=== PATIENT | male | born 1950 | race Caucasian/White ===

== ENCOUNTER 2020-04-09 11:13 | Inpatient (IN) | payer OTHER ==
[~2020-04-09] VITALS: Ht 177.8 cm; Wt 70.3 kg
--- NOTE | 2020-04-09 11:30 | NUR ---
[facility] RA 89 From Home "Dx COVID 03/15 in [facility]- admit to [facility] COVID Pneumonia. On room air, 02 sat 82%, 95% on 5lpm via nc. Connected to the monitor and pulse ox, kept comfortable, will continue to monitor accordingly.
--- NOTE | 2020-04-09 11:34 | NUR ---
IV access initiated and blood drawned and sent to lab
[2020-04-09] MEDS ORDERED: FINA5TAB11 PO (11:37)
[2020-04-09] MEDS ORDERED: ACET-868 PO (11:37)
[2020-04-09] MEDS ORDERED: BENA10TA74 PO (11:37)
[2020-04-09] MEDS ORDERED: PROM118S PO (11:37)
[2020-04-09] MEDS ORDERED: AMLO-213 PO (11:37)
[2020-04-09] MEDS ORDERED: IPRA3AMP23 IH (11:37)
[2020-04-09 11:39] LABS: BASOPHILS # (AUTO) 0.1 /CMM (0.0-0.2); BASOPHILS % (AUTO) 1.1 % (0.0-2.0); EOSINOPHILS % (AUTO) 0.9 % (0.0-6.0); HEMATOCRIT 46 % (39-51); HEMOGLOBIN 15.6 g/dL (13.5-17.5); LYMPHOCYTES # (AUTO) 1.1 /CMM (0.8-4.8); MEAN CORPUSCULAR HGB CONC 34 g/dl (31.0-36.0); MEAN CORPUSCULAR VOLUME 89 fL (80-96); MONOCYTES # (AUTO) 0.8 /CMM (0.1-1.30); MONOCYTES % (AUTO) 6.8 % (2.0-12.0); NEUTROPHILS # (AUTO) 9.9 /CMM (1.8-8.9); NEUTROPHILS % (AUTO) 82.2 % (43.0-81.0); PLATELET COUNT (AUTO) 287 /CMM (150-450); RED BLOOD CELL COUNT(AUTO) 5.21 MIL/uL (4.5-6.0)
[2020-04-09 11:50] LABS: BILIRUBIN,URINE Negative (NEGATIVE); COLOR,URINE YELLOW (YELLOW); LEUKOCYTE ESTERASE ,URINE Negative (NEGATIVE); NITRITE, URINE Negative (NEGATIVE); PROTEIN,URINE Negative (NEGATIVE); UGLUCOSE Negative (NEGATIVE); UROBILINOGEN,URINE 0.2 EU/dL (0.2)
[2020-04-09 11:54] LABS: ALANINE AMINOTRANSFERASE 44 U/L (12-78); ALBUMIN 2.5 g/dL (3.4-5.0); ALKALINE PHOSPHATASE 104 U/L (46-116); ASPARTATE AMINOTRANSFERASE 30 U/L (15-37); BILIRUBIN,DIRECT 0.2 mg/dL (0.0-0.2); BILIRUBIN,TOTAL 0.8 mg/dL (0.2-1.0); CALCIUM, SERUM 8.8 mg/dL (8.5-10.1); CARBON DIOXIDE 26 mmol/L (21-32); CHLORIDE 100 mmol/L (98-107); CREATININE 0.9 mg/dL (0.6-1.3); GLUCOSE 129 mg/dL (74-106); POTASSIUM 3.9 mmol/L (3.5-5.1); SODIUM SERUM 132 mmol/L (136-145); TOTAL PROTEIN, SERUM 8.2 g/dL (6.4-8.2); UREA NITROGEN, BLOOD 7 mg/dL (7-18)
--- NOTE | 2020-04-09 11:56 | NUR ---
urine collected and sent to lab
[2020-04-09 11:59] LABS: BACTERIA,URINE Rare /HPF (None Seen); SQUAMOUS EPITHELIAL CELL,UR 0-2 /HPF (None Seen); WBC,URINE 0-2 /HPF (0-3)
--- NOTE | 2020-04-09 13:05 | NUR ---
covid pcr and antigen done sent to lab
--- NOTE | 2020-04-09 15:35 | NUR ---
[facility] CALLED LEAD REFINERY SUPERVISOR PAGED.
[2020-04-09] MEDS ORDERED: ACETAMINOPHEN 325 MG TABLET PO PRN ×2 (16:30)
[2020-04-09] MEDS ORDERED: HYDROCODONE/APAP 5/325MG TABLET PO PRN (16:30)
[2020-04-09] MEDS ORDERED: ONDANSETRON HCL/PF 4 MG/2 ML VIAL IVP PRN (16:30)
[2020-04-09] MEDS ORDERED: MAG HYDROX/AL HYDROX/SIMETH 30 ML UDC PO PRN (16:30)
[2020-04-09] MEDS ORDERED: Z GUARD REMEDY 2 OZ OINT TP PRN (16:30)
[2020-04-09] MEDS ORDERED: ENOXAPARIN SODIUM 40 MG/0.4 ML DISP.SYRIN SQ ONE ×2 (16:30→17:20)
[2020-04-09] MEDS ORDERED: DEXAMETHASONE SOD PHOSPHATE 10 MG/ML VIAL ONE (17:20)
[2020-04-09] MEDS: DEXAMETHASONE SOD PHOSPHATE 10 MG/ML VIAL IJ SCH (17:24)
[2020-04-09] MEDS ORDERED: ZOSYN IVPB 3.375 G in IV D5W 50ml IV ONE (17:30)
--- NOTE | 2020-04-09 19:04 | NUR ---
Report given to Vanesa BOO for lani
--- NOTE | 2020-04-09 19:05 | NUR ---
Rec'd report from RAJEEV Montalvo for lani
--- NOTE | 2020-04-09 19:38 | NUR ---
per nursing senior production supervisor pt will be going to room 104
--- NOTE | 2020-04-09 20:25 | NUR ---
report given to prince mckeon at [facility]. pt will go to room 104
[2020-04-09 20:43] VITALS: BP 123/60
--- NOTE | 2020-04-09 20:43 | NUR ---
ADMIT NOTE ADMITTED PATIENT FROM ER TO ROOM 104 [facility]. PATIENT IS A/OX4, DJIBOUTIAN SPEAKING WITH MINIMAL SERBIAN. ON O2 4LPM VIA NASAL CANNULA, O2 92%. NO RESPIRATORY DISTRESS AT THIS TIME. SAFELY TRANSFERRED FROM [facility] TO BED. SKIN IS INTACT. WITH IV ON RIGHT AC #18, PATENT, INTACT, AND FLUSHED WITH NS. SAFETY MEASURES IMPLEMENTED. BED LOCKED AND IN LOWEST POSITION. SIDE RAILS UP X2. CALL LIGHT WITHIN REACH. WILL CONTINUE TO MONITOR.
[2020-04-09] MEDS: PIPERACILLIN /TAZOBACTAM 3.375 G in IV D5W 100 ML IV SCH (22:18)
[2020-04-10 04:00] VITALS: BP 107/68
[2020-04-10] MEDS: PIPERACILLIN /TAZOBACTAM 3.375 G in IV D5W 100 ML IV SCH ×3 (05:28→21:14)
[2020-04-10 06:03] LABS: BASOPHILS % (AUTO) 0.2 % (0.0-2.0); HEMATOCRIT 43 % (39-51); HEMOGLOBIN 14.9 g/dL (13.5-17.5); LYMPHOCYTES # (AUTO) 0.7 /CMM (0.8-4.8); LYMPHOCYTES % (AUTO) 11.4 % (20.0-44.0); MEAN CORPUSCULAR HGB CONC 35 g/dl (31.0-36.0); MEAN CORPUSCULAR VOLUME 89 fL (80-96); MONOCYTES # (AUTO) 0.2 /CMM (0.1-1.30); MONOCYTES % (AUTO) 3.5 % (2.0-12.0); NEUTROPHILS # (AUTO) 5.2 /CMM (1.8-8.9); NEUTROPHILS % (AUTO) 84.9 % (43.0-81.0); PLATELET COUNT (AUTO) 252 /CMM (150-450); RED BLOOD CELL COUNT(AUTO) 4.83 MIL/uL (4.5-6.0); WHITE BLOOD COUNT (AUTO) 6.1 K/uL (4.3-11.0)
[2020-04-10 06:05] LABS: CALCIUM, SERUM 8.8 mg/dL (8.5-10.1); CREATININE 1.1 mg/dL (0.6-1.3); MAGNESIUM 2.3 mg/dL (1.8-2.4); PHOSPHORUS 4.1 mg/dL (2.5-4.9); POTASSIUM 4.4 mmol/L (3.5-5.1)
--- NOTE | 2020-04-10 07:15 | NUR ---
RN OPENING NOTE PATIENT IS ALERT AND ORIENTED X4, BENGALI SPEAKING, ABLE TO MAKE NEEDS KNOWN. PATIENT RECEIVED IN BED RESTING COMFORTABLE. NO APPARENT DISTRESS OR SOB NOTED. PATIENT IS ON O2 THERAPY VIA NC AT 4 LPM. PATIENT IS TOLERATING WELL. RIGHT AC RICHARD #18 INTACT AND PATENT. SAFETY PRECAUTIONS IMPLEMENTED. BED LOCKED IN LOWEST POSITION, SIDE RAILS UP 2, AND CALL LIGHT WITHIN REACH. WILL CONTINUE TO MONITOR AND PROVIDE CARE THROUGHOUT SHIFT.
--- NOTE | 2020-04-10 07:38 | NUR ---
RN NOTES PATIENT A/OX4. RESTING IN BED. ON O2 4LPM VIA NASAL CANNULA, O2 SAT 92%. NO RESPIRATORY DISTRESS AT THIS TIME. WITH IV ON RIGHT AC #18, PATENT AND INTACT. ALL DUE MEDS GIVEN ORDERED AND TOLERATED WELL. ALL NEEDS ATTENDED PROMPTLY. CALL LIGHT WITHIN REACH. SAFETY MEASURES IN PLACE. BED LOCKED AND IN LOWEST POSITION WITH SR X2 UP. ENDORSED TO ONCOMING SHIFT.
[2020-04-10] MEDS: DEXAMETHASONE SOD PHOSPHATE 10 MG/ML VIAL IJ SCH (08:29)
[2020-04-10] MEDS: BENAZEPRIL HCL 10 MG TABLET PO SCH (08:29)
[2020-04-10] MEDS: FINASTERIDE (5 MG) 5 MG TABLET PO SCH (08:29)
[2020-04-10] MEDS: AMLODIPINE BESYLATE 10 MG TABLET PO SCH (08:30)
[2020-04-10 12:00] VITALS: BP 118/68
[2020-04-10 16:00] VITALS: BP 114/69
--- NOTE | 2020-04-10 18:33 | NUR ---
RN CLOSING NOTE PATIENT IS ALERT AND ORIENTED X4, FAROESE SPEAKING, ABLE TO MAKE NEEDS KNOWN. PATIENT CURRENTLY IN BED RESTING COMFORTABLY. NO APPARENT DISTRESS OR SOB NOTED. DENIES PAIN. PATIENT IS ON O2 THERAPY VIA NC AT 4 LPM. PATIENT IS TOLERATING WELL. RIGHT AC RICHARD #18 INTACT AND PATENT. SAFETY PRECAUTIONS IMPLEMENTED. BED LOCKED IN LOWEST POSITION, SIDE RAILS UP 2, AND CALL LIGHT WITHIN REACH. WILL ENDORSE CARE TO UPCOMING SHIFT.
--- NOTE | 2020-04-10 19:15 | NUR ---
RECEIVED PT ON BED AWAKE A/O X3 ABLE TO VERBALIZE NEEDS ON O2 NC @ 4L SPO2 96% NO SIGN AND SYMPTOMS OF DISTRESS NO PAIN COMPLAINED HAVE RIGHT AC IV #18 PATENT AND FLUSHED , BED ON LOWEST POSITION AND LOCKED SIDE RAILS UP X2 CALL LIGHT WITHIN REACH WILL CONT TO MONITOR THE PT
[2020-04-10] MEDS: ENOXAPARIN SODIUM 40 MG/0.4 ML DISP.SYRIN SQ SCH (20:17)
[2020-04-11] VITALS: BP 108/58
[2020-04-11] MEDS: PIPERACILLIN /TAZOBACTAM 3.375 G in IV D5W 100 ML IV SCH (05:26)
--- NOTE | 2020-04-11 06:56 | NUR ---
PT ON BED ASLEEP EASY TO WAKE UP NO SIGN OF ANY DISTRESS, NO SIGNIFICANT CHANGES ON CONDITION NOTED, ALL NEEDS ATTENDED BED ON LOWEST POSITION AND LOCKED SIDE RAILS UP X 2 CALL LIGHT WITHIN REACH WILL ENDORSED TO AM SHIFT NURSE
--- NOTE | 2020-04-11 07:30 | NUR ---
RN OPENING NOTES PATIENT IS ALERT AND ORIENTED X4, GREENLANDIC SPEAKING, ABLE TO MAKE NEEDS KNOWN.NOT IN ANY DISTRESS. PATIENT IS ON O2 THERAPY VIA NC AT 4 LPM. PATIENT IS TOLERATING WELL. RIGHT AC RICHARD #18 INTACT AND PATENT. SAFETY PRECAUTIONS IMPLEMENTED. BED LOCKED IN LOWEST POSITION, SIDE RAILS UP 2, AND CALL LIGHT WITHIN REACH. WILL CONTINUE TO MONITOR AND PROVIDE CARE THROUGHOUT SHIFT.
[2020-04-11 08:00] VITALS: BP 108/58
[2020-04-11] MEDS ORDERED: AZITHROMYCIN 250 MG TABLET PO SCH (09:00)
[2020-04-11] MEDS: DEXAMETHASONE SOD PHOSPHATE 10 MG/ML VIAL IJ SCH (09:16)
[2020-04-11] MEDS: FINASTERIDE (5 MG) 5 MG TABLET PO SCH (09:17)
[2020-04-11] MEDS: AMLODIPINE BESYLATE 10 MG TABLET PO SCH (09:17)
[2020-04-11] MEDS: BENAZEPRIL HCL 10 MG TABLET PO SCH (09:17)
--- NOTE | 2020-04-11 13:00 | NUR ---
RN NOTES DR HARMON WITH INSTRUCTIONS TO TITRATE PT O2 TO 3LPM, AND IF TOLERATED, TO DC HOME. MD MADE AWARE PT O2 SAT AT 3LMP/NC IS BETWEEN 86%-88%. MD WITH NO NEW ORDERS AT THIS TIME. O2 INCREASED TO 6LPM, WITH O2 SAT INN 92%-94%. WILL CONTINUE TO MONITOR.
[2020-04-11 16:00] VITALS: BP 128/68
--- NOTE | 2020-04-11 18:43 | NUR ---
RN CLOSING NOTES PATIENT IS ALERT AND ORIENTED X4, ENGLISH SPEAKING, ABLE TO MAKE NEEDS KNOWN. PATIENT IN BED WITH NO APPARENT DISTRESS OR SOB NOTED. PATIENT IS ON O2 THERAPY VIA NC AT 4 LPM AND TOLERATED WELL. RIGHT AC RICHARD #18 INTACT AND PATENT. SAFETY PRECAUTIONS IMPLEMENTED. BED LOCKED IN LOWEST POSITION, SIDE RAILS UP 2, AND CALL LIGHT WITHIN REACH. WILL ENDORSE TO NEXT SHIFT.
--- NOTE | 2020-04-11 19:27 | NUR ---
RECEIVED PT ON BED AWAKE A/O X3 ABLE TO VERBALIZE NEEDS ON O2 NC @ 6L SPO2 95% NO SIGN AND SYMPTOMS OF DISTRESS NO PAIN COMPLAINED HAVE RIGHT AC IV #18 PATENT AND FLUSHED , BED ON LOWEST POSITION AND LOCKED SIDE RAILS UP X2 CALL LIGHT WITHIN REACH WILL CONT TO MONITOR THE PT
[2020-04-11] MEDS: ENOXAPARIN SODIUM 40 MG/0.4 ML DISP.SYRIN SQ SCH (20:08)
[2020-04-12] VITALS: BP 136/67
[2020-04-12 04:00] VITALS: BP 140/89
[2020-04-12] MEDS: MAGNESIUM HYDROXIDE 30 ML UDC PO PRN (05:38)
--- NOTE | 2020-04-12 07:30 | NUR ---
GARBAGE STOKER 1 PATIENT IN BED, NO S/S OF DISTRESS, A/O X4, YI SPEAKING WITH SOME HAITIAN, USED STAFF TO TRANSLATE, 6L NASAL CANULA O2 SAT > 90%, USES URINAL, AMBULATORY WITH ASSIST, REGULAR DIET, R AC 18 GAUGE IV CLEAN DRY FLUSHES EASILY, BED IN LOWEST LOCKED POSITION, CALL LIGHT WITHIN REACH, WILL CONTINUE TO MONITOR.
[2020-04-12 08:00] VITALS: BP 135/74
[2020-04-12] MEDS: BENAZEPRIL HCL 10 MG TABLET PO SCH (08:39)
[2020-04-12] MEDS: FINASTERIDE (5 MG) 5 MG TABLET PO SCH (08:39)
[2020-04-12] MEDS: AMLODIPINE BESYLATE 10 MG TABLET PO SCH (08:39)
[2020-04-12] MEDS: DEXAMETHASONE SOD PHOSPHATE 10 MG/ML VIAL IJ SCH (08:39)
[2020-04-12 16:00] VITALS: BP 119/73
--- NOTE | 2020-04-12 18:53 | NUR ---
ASSOCIATE MANAGER AFFILIATE MARKETING 1 PATIENT IN BED, NO S/S OF DISTRESS, A/O X4, NEPALI SPEAKING WITH SOME GUINEAN, USED STAFF TO TRANSLATE, 6L NASAL CANULA O2 SAT > 90%, UP TO BEDSIDE COMMODE, AMBULATORY WITH ASSIST, REGULAR DIET, R AC 18 GAUGE IV CLEAN DRY FLUSHES EASILY, BED IN LOWEST LOCKED POSITION, CALL LIGHT WITHIN REACH, WILL ENDORSE TO POLYTECHNIC TEACHER. PT REBEKAH TODAY WENT WELL, TOLERATED WALKING IN ROOM.
[2020-04-12 20:00] VITALS: BP 133/71
--- NOTE | 2020-04-12 20:00 | NUR ---
RN OPENING NOTES PATIENT IS ALERT AND ORIENTED X4, TELUGU SPEAKING, ABLE TO MAKE NEEDS KNOWN.NOT IN ANY DISTRESS. PATIENT IS ON O2 THERAPY VIA NC AT 6 LPM. PATIENT IS TOLERATING WELL. RIGHT AC RICHARD #18 INTACT AND PATENT. SAFETY PRECAUTIONS IMPLEMENTED. BED LOCKED IN LOWEST POSITION, SIDE RAILS UP 2, AND CALL LIGHT WITHIN REACH.DUE MEDS GIVEN ORDERED V/S STABLE AFEBRILE ,ALL NEEDS ATTENDED TOO WILL CONTINUE TO MONITOR PTS.
[2020-04-12] MEDS: ENOXAPARIN SODIUM 40 MG/0.4 ML DISP.SYRIN SQ SCH (21:37)
--- NOTE | 2020-04-12 22:00 | NUR ---
mS RN NOTES PTS SATING 96% AT OF THIS TIME, NO SOB NO DISTRESS NOTED,DUE MEDS GIVEN ORDERED ,WILL CONTINUE TO MONITOR PTS.
[2020-04-13 04:00] VITALS: BP 125/81
--- NOTE | 2020-04-13 06:29 | NUR ---
ms rn notes RN CLOSING NOTE: PATIENT REMAINS IN ROOM IN NO SIGNS OF RESPIRATORY DISTRESS. SAFETY MEASURES IMPLEMENTED, BED IN LOWEST POSITION, LOCKED, SIDE RAILS UP, CALL LIGHT WITHIN REACH. ALL NEEDS AND ORDERS ADDRESSED DURING THE SHIFT. IV ACCESS MAINTAINED INTACT, SECURED AND FLUSHING WELL. ALL DUE MEDS GIVEN ORDERED & SCHEDULED ; PATIENT TOLERATED WELL. PATIENT KEPT CLEAN AND COMFORTABLE WITHIN THE SHIFT. PATIENT ENDORSED TO INCOMING SHIFT RN WITH STABLE VITAL SIGN AND FOR CONTINUITY OF CARE.
[2020-04-13 06:40] LABS: BASOPHILS % (AUTO) 0.5 % (0.0-2.0); EOSINOPHILS % (AUTO) 0.9 % (0.0-6.0); HEMATOCRIT 41 % (39-51); HEMOGLOBIN 14.1 g/dL (13.5-17.5); LYMPHOCYTES # (AUTO) 1.6 /CMM (0.8-4.8); LYMPHOCYTES % (AUTO) 16.7 % (20.0-44.0); MEAN CORPUSCULAR HGB CONC 34 g/dl (31.0-36.0); MEAN CORPUSCULAR VOLUME 88 fL (80-96); MONOCYTES # (AUTO) 0.6 /CMM (0.1-1.30); MONOCYTES % (AUTO) 6.2 % (2.0-12.0); NEUTROPHILS # (AUTO) 7.2 /CMM (1.8-8.9); NEUTROPHILS % (AUTO) 75.7 % (43.0-81.0); PLATELET COUNT (AUTO) 289 /CMM (150-450); RED BLOOD CELL COUNT(AUTO) 4.67 MIL/uL (4.5-6.0); WHITE BLOOD COUNT (AUTO) 9.5 K/uL (4.3-11.0)
[2020-04-13 07:14] LABS: CALCIUM, SERUM 8.4 mg/dL (8.5-10.1); CREATININE 0.8 mg/dL (0.6-1.3); POTASSIUM 4.5 mmol/L (3.5-5.1)
[2020-04-13 08:00] VITALS: BP 138/86
[2020-04-13] MEDS: BENAZEPRIL HCL 10 MG TABLET PO SCH (09:10)
[2020-04-13] MEDS: DEXAMETHASONE SOD PHOSPHATE 10 MG/ML VIAL IJ SCH (09:10)
[2020-04-13] MEDS: AMLODIPINE BESYLATE 10 MG TABLET PO SCH (09:10)
[2020-04-13] MEDS: FINASTERIDE (5 MG) 5 MG TABLET PO SCH (09:10)
[2020-04-13] MEDS: MAGNESIUM HYDROXIDE 30 ML UDC PO PRN (11:24)
[2020-04-13 16:00] VITALS: BP 112/69
--- NOTE | 2020-04-13 18:45 | NUR ---
CHANNEL CEMENTER OUTSOLE MACHINE NOTES PATIENT IN BED RESTING NO SOB OR ACUTE DISTRESS NOTED. PATIENT ON NASAL CANULA 6L TOLERATING IT WELL. NO SOB OR ACUTE DISTRESS NOTED. ALL DUE MEDICATIONS ADMINISTERED. ALL NEEDS MET. NO ACUTE CHANGES NOTED DURING AM SHIFT WILL ENDORSE CARE TO PM SHIFT.
--- NOTE | 2020-04-13 19:50 | NUR ---
RN OPENING NOTES PATIENT IS ALERT AND ORIENTED X4, MALTESE SPEAKING, ABLE TO MAKE NEEDS KNOWN.NOT IN ANY DISTRESS. PATIENT IS ON O2 THERAPY VIA NC AT 6 LPM. PATIENT IS TOLERATING WELL. RIGHT AC RICHARD #18 INTACT AND PATENT. DUE MEDS GIVEN ORDERED .SAFETY PRECAUTIONS IMPLEMENTED. BED LOCKED IN LOWEST POSITION, SIDE RAILS UP 2, AND CALL LIGHT WITHIN REACH.DUE MEDS GIVEN ORDERED V/S STABLE AFEBRILE ,ALL NEEDS ATTENDED TOO WILL CONTINUE TO MONITOR PTS.
[2020-04-13 20:00] VITALS: BP 119/81
[2020-04-13] MEDS: ENOXAPARIN SODIUM 40 MG/0.4 ML DISP.SYRIN SQ SCH (20:16)
[2020-04-14 04:00] VITALS: BP 138/81
--- NOTE | 2020-04-14 05:38 | NUR ---
ms rn notes RN CLOSING NOTE: PATIENT REMAINS IN ROOM IN NO SIGNS OF RESPIRATORY DISTRESS. SAFETY MEASURES IMPLEMENTED, BED IN LOWEST POSITION, LOCKED, SIDE RAILS UP, CALL LIGHT WITHIN REACH. ALL NEEDS AND ORDERS ADDRESSED DURING THE SHIFT. . ALL DUE MEDS GIVEN ORDERED & SCHEDULED ; PATIENT TOLERATED WELL. PATIENT KEPT CLEAN AND COMFORTABLE WITHIN THE SHIFT. PATIENT ENDORSED TO INCOMING SHIFT RN WITH STABLE VITAL SIGN AND FOR CONTINUITY OF CARE.
--- NOTE | 2020-04-14 07:15 | NUR ---
RN OPENING NOTE PATIENT IS ALERT AND ORIENTED X4, WOLOF SPEAKING, ABLE TO MAKE NEEDS KNOWN. PATIENT RECEIVED IN BED RESTING COMFORTABLE. NO APPARENT DISTRESS OR SOB NOTED. PATIENT IS ON O2 THERAPY VIA NC AT 4 LPM. PATIENT IS TOLERATING WELL. RIGHT AC RICHARD #18 INTACT AND PATENT. SAFETY PRECAUTIONS IMPLEMENTED. BED LOCKED IN LOWEST POSITION, SIDE RAILS UP 2, AND CALL LIGHT WITHIN REACH. WILL CONTINUE TO MONITOR AND PROVIDE CARE THROUGHOUT SHIFT.
[2020-04-14] MEDS: DEXAMETHASONE SOD PHOSPHATE 10 MG/ML VIAL IJ SCH (09:56)
[2020-04-14] MEDS: AMLODIPINE BESYLATE 10 MG TABLET PO SCH (09:57)
[2020-04-14] MEDS: BENAZEPRIL HCL 10 MG TABLET PO SCH (09:57)
[2020-04-14] MEDS: FINASTERIDE (5 MG) 5 MG TABLET PO SCH (09:58)
[2020-04-14 12:00] VITALS: BP 127/81
--- NOTE | 2020-04-14 19:15 | NUR ---
RN CLOSING NOTE PATIENT IS ALERT AND ORIENTED X4, SYRIAC SPEAKING, ABLE TO MAKE NEEDS KNOWN. PATIENT IN BED RESTING COMFORTABLE. NO APPARENT DISTRESS OR SOB NOTED. PATIENT IS ON O2 THERAPY VIA NC AT 4 LPM. PATIENT IS TOLERATING WELL. RIGHT AC RICHARD #18 INTACT AND PATENT. SAFETY PRECAUTIONS IMPLEMENTED. BED LOCKED IN LOWEST POSITION, SIDE RAILS UP 2, AND CALL LIGHT WITHIN REACH. WILL ENDORSE CARE TO UPCOMING SHIFT.
[2020-04-14 20:00] VITALS: BP 134/80
--- NOTE | 2020-04-14 20:00 | NUR ---
RN OPENING NOTES PATIENT IS ALERT AND ORIENTED X4, UKRAINIAN SPEAKING, ABLE TO MAKE NEEDS KNOWN.NOT IN ANY DISTRESS. PATIENT IS ON O2 THERAPY VIA NC AT 6 LPM. SATING 93%. RIGHT AC RICHARD #18 INTACT AND PATENT. DUE MEDS GIVEN ORDERED .SAFETY PRECAUTIONS IMPLEMENTED. BED LOCKED IN LOWEST POSITION, SIDE RAILS UP 2, AND CALL LIGHT WITHIN REACH.DUE MEDS GIVEN ORDERED V/S STABLE AFEBRILE ,ALL NEEDS ATTENDED TOO WILL CONTINUE TO MONITOR PTS.
[2020-04-14] MEDS: ENOXAPARIN SODIUM 40 MG/0.4 ML DISP.SYRIN SQ SCH (21:07)
[2020-04-15 04:00] VITALS: BP 127/73
--- NOTE | 2020-04-15 05:48 | NUR ---
ms rn notes RN CLOSING NOTE: PATIENT REMAINS IN ROOM IN NO SIGNS OF RESPIRATORY DISTRESS. SAFETY MEASURES IMPLEMENTED, BED IN LOWEST POSITION, LOCKED, SIDE RAILS UP, CALL LIGHT WITHIN REACH. ALL NEEDS AND ORDERS ADDRESSED DURING THE SHIFT. . PATIENT TOLERATED WELL. PATIENT KEPT CLEAN AND COMFORTABLE WITHIN THE SHIFT. PATIENT ENDORSED TO INCOMING SHIFT RN WITH STABLE VITAL SIGN AND FOR CONTINUITY OF CARE.
[2020-04-15 08:00] VITALS: BP_SYST 111; BP_SYST 125; BP_DIAS 70; BP_DIAS 81
--- NOTE | 2020-04-15 08:00 | NUR ---
MS RN NOTE: PATIENT REMAINS IN BED ALERT ORIENTED, IN NO SIGNS OF RESPIRATORY DISTRESS. SAFETY MEASURES IMPLEMENTED, BED IN LOWEST POSITION, LOCKED, SIDE RAILS UP, CALL LIGHT WITHIN REACH. ALL NEEDS ATTENDED . PATIENT KEPT CLEAN AND COMFORTABLE PATIENT, ON 6L NC [id number] ABLE TO RAT BREAKFAST WELL , RT AC HL INTACT AND FLUSHED WELL WILL CONT TO MONITOR
[2020-04-15] MEDS: DEXAMETHASONE SOD PHOSPHATE 10 MG/ML VIAL IJ SCH (08:39)
[2020-04-15] MEDS: FINASTERIDE (5 MG) 5 MG TABLET PO SCH (08:40)
[2020-04-15] MEDS: AMLODIPINE BESYLATE 10 MG TABLET PO SCH (08:40)
[2020-04-15] MEDS: BENAZEPRIL HCL 10 MG TABLET PO SCH (08:40)
[2020-04-15] MEDS ORDERED: GUAIFENESIN/D-METHORPHAN HB 5 ML UDC PO PRN (09:30)
--- NOTE | 2020-04-15 10:11 | NUR ---
MS RN NOTE C\O SOTERO, DR HARMON AT BEDSIDE WITH ORDER ROBITUSSIN PRN ALSO PLACE ON 4L NC SATURATION 92% AT THIS TIME , WILL MONITOR Addendum: 04/15/20 at 1011 by ZEHRA SHEIKH RN ROBITUSSIN GIVEN ORDERED
[2020-04-15 12:00] VITALS: BP 111/70
--- NOTE | 2020-04-15 13:17 | NUR ---
MS RN NOTE HAVIBF LUNCH , ABLE TO EAT SELF , SATURATION ON 4L NC 94 AT THIS TIME
[2020-04-15 16:00] VITALS: BP 123/80
--- NOTE | 2020-04-15 17:58 | NUR ---
MS RN NOTE ALL NEEDS ATTENDED , HAVING DINNER , SATURATION ON 4L NC, 91% AT THIS TIME
--- NOTE | 2020-04-15 18:34 | NUR ---
MS RN NOTE PATIENT IN BED , NO SIGNS OF RESPIRATORY DISTRESS. SAFETY MEASURES IMPLEMENTED, BED IN LOWEST POSITION, LOCKED, SIDE RAILS UP, CALL LIGHT WITHIN REACH. ALL NEEDS ATTENDED , ON 4L NC OF O2 ,SATURATION 93% AT THIS TIME ,ABLE TO EAT SELF, NO SOB NOTED AT THIS TIME, NO COUGHING AT THIS TIME ,WILL CONT TO MONITOR
[2020-04-15 19:06] LABS: *HIV-1 RNA BY PCR <20 copies/mL (.)
[2020-04-15 20:00] VITALS: BP 119/83
[2020-04-15] MEDS: ENOXAPARIN SODIUM 40 MG/0.4 ML DISP.SYRIN SQ SCH (20:58)
[2020-04-16 04:00] VITALS: BP 123/84
--- NOTE | 2020-04-16 06:50 | NUR ---
MS RN CLOSING NOTE, PATIENT IN BED , A/O TO X4 GREENLANDIC SPEAKING, NO SOB/NO SIGNS OF RESPIRATORY DISTRESS, WITH ONE EPISODE OF DESATURATION WHEN USE COMMODE DROPPED TO LOW 80S, OTHERWISE > 97% ON 4LPM THROUGHOUT THE NIGHT, SAFETY MEASURES IMPLEMENTED, BED IN LOWEST POSITION, LOCKED, SIDE RAILS UP, CALL LIGHT WITHIN REACH. ALL NEEDS ATTENDED , WILL ENDORSE CONTINUITY OF CARE TO ONCOMING NURSE.
--- NOTE | 2020-04-16 07:38 | NUR ---
RN NOTES PATIENT RECEIVED IN BED, ALERT AND ORIENTED X 4, YORUBA SPEAKING. PATIENT ON 4 LITERS NASAL CANNULA WITH NO SIGNS OF RESPIRATORY DISTRESS PRESENT AT THIS TIME. PATIENT PRESENTING WITH NO PAIN OR DISCOMFORT AT THIS TIME. IV ACCESS INTACT AND PATENT, SKIN WARM AND DRY TO TOUCH. SAFETY PRECAUTIONS IMPLEMENTED WITH BED LOCKED, BILATERAL SIDE RAILS UP, BED IN LOWEST POSITION, BED ALARM ON, AND CALL LIGHT WITHIN EASY REACH. WILL CONTINUE TO MONITOR PATIENT.
[2020-04-16 08:00] VITALS: BP 130/79
[2020-04-16] MEDS: FINASTERIDE (5 MG) 5 MG TABLET PO SCH (09:11)
[2020-04-16 09:12] VITALS: BP 130/69
[2020-04-16] MEDS: AMLODIPINE BESYLATE 10 MG TABLET PO SCH (09:12)
[2020-04-16] MEDS: BENAZEPRIL HCL 10 MG TABLET PO SCH (09:12)
[2020-04-16] MEDS: DEXAMETHASONE SOD PHOSPHATE 10 MG/ML VIAL IJ SCH (09:12)
--- NOTE | 2020-04-16 12:01 | NUR ---
LAND MANAGEMENT SUPERVISOR NOTES PATIENT IN BED AT THIS TIME, ALERT AND ORIENTED X 4, NAMIBIAN SPEAKING. PATIENT ON 3 LITERS NASAL CANNULA WITH NO SIGNS OF RESPIRATORY DISTRESS PRESENT AT THIS TIME WITH EVEN NON-LABORED BREATHING. VITAL SIGNS WNL. PATIENT PRESENTING WITH NO PAIN OR DISCOMFORT AT THIS TIME. IV ACCESS REMOVED AND CATHETER TIP INTACT AND APPLIED PRESSURE TO SITE. SKIN KEPT CLEAN, WARM AND DRY TO TOUCH. REMOVED ID BAND. PATIENT ACCOUNTED FOR ALL OF BELONGINGS. EXIT CARE PROVIDED TO PATIENT AND INFORMED PATIENT'S DAUGHTER WELL, SPOKE TO AKUA. PATIENT LEFT UNIT VIA WHEELCHAIR, AND LEFT HOSPITAL IN PRIVATE CAR.
== END 2020-04-16 12:16 | disposition home or self-care (01) | DRG 177 ==
LOC: ER 11:22 → MEDSG1 19:53
PROVIDERS: ADMIT Internal Medicine; ATTEND Internal Medicine
DX: U07.1 COVID-19 (principal); J96.01 Acute respiratory failure with hypoxia; J12.82 Pneumonia due to coronavirus disease 2019; E87.1 Hypo-osmolality and hyponatremia; I10 Essential (primary) hypertension; N40.0 Benign prostatic hyperplasia without lower urinary tract symptoms; Z79.51 Long term (current) use of inhaled steroids; Z79.899 Other long term (current) drug therapy; E86.1 Hypovolemia; Y95 Nosocomial condition
CPT/HCPCS: 36415; 71045-TC; 80048-TC; 80076-TC; 81001; 83605-TC; 83735-TC; 84100-TC; 84484-TC; 85025-TC; 85730-TC; 86480; 86803; 87040-TC; 87081-TC; 87086-TC; 87186-TC; 87536; 87899; 97112-TC; 97116-TC; 97530-TC; C9803; G0378; J1100; J1650; J2543; J7050; J7060; U0003